=== PATIENT | male | born 1975 | race Caucasian/White ===

== ENCOUNTER 2018-11-16 11:23 | Emergency (ER) | payer OTHER ==
[~2018-11-16] VITALS: Ht 172.7 cm; Wt 72.6 kg
[~2018-11-16 11:23] MED LIST: CIPRSO OD; CYCL10 PO; Flomax0.4 MG PO; HYDACE10B PO; HYDACE5 PO; INDO50 PO; NAPR220 PO; Naprosyn500 MG PO; Norco 5-325 Ta1 EACH PO; OXYACE5T PO; PIRO20 PO; Percocet 5-3251 EACH PO; Ultram50 MG PO
== END 2018-11-16 14:04 | disposition home or self-care (01) ==
LOC: ER 11:23
DX: S66.912A Strain of unspecified muscle, fascia and tendon at wrist and hand level, left hand, initial encounter (principal); S66.911A Strain of unspecified muscle, fascia and tendon at wrist and hand level, right hand, initial encounter; W22.8XXA Striking against or struck by other objects, initial encounter; Z88.0 Allergy status to penicillin; Z88.5 Allergy status to narcotic agent
CPT/HCPCS: 29125; 73110; 99283-25